=== PATIENT | male | born 1960 | race Caucasian/White ===

== ENCOUNTER 2019-06-03 11:54 | Emergency (ER) | payer OTHER ==
[~2019-06-03] VITALS: Ht 182.9 cm; Wt 86.2 kg
[2019-06-03 12:32] LABS: BASOPHILS ABSOLUTE AUTO 0.03 K/mm3 (0.00-0.23); BASOPHILS PERCENT AUTO 0 % (0-2); EOSINOPHILS PERCENT AUTO 1 % (0-6); Hematocrit 46.8 % (37.0-53.0); Hemoglobin 15.8 g/dL (13.5-17.5); IMMATURE GRAN ABSOLUTE AUTO 0.03 K/mm3 (0.00-0.10); IMMATURE GRAN PERCENT AUTO 0 % (0-1); LYMPHOCYTES ABSOLUTE AUTO 2.56 K/mm3 (0.84-5.20); LYMPHOCYTES PERCENT AUTO 23 % (21-46); MONOCYTES ABSOLUTE AUTO 1.24 K/mm3 (0.16-1.47); MONOCYTES PERCENT AUTO 11 % (4-13); Mean Corpuscular HGB 29.9 pg (26.0-34.0); Mean Corpuscular HGB Conc 33.8 g/dL (31.5-36.5); Mean Corpuscular Volume 89 fL (80-100); Mean Platelet Volume 10.7 fL (9.1-12.4); NEUTROPHILS ABSOLUTE AUTO 7.27 K/mm3 (1.96-9.15); NEUTROPHILS PERCENT AUTO 65 % (41-73); Platelet Count 168 K/mm3 (150-400); RDW Coefficient Variation 13.2 % (11.7-14.2); RDW Standard Deviation 43.2 fL (35.1-46.3); Red Blood Cell Count 5.28 M/mm3 (4.30-5.90); White Blood Cell Count 11.23 K/mm3 (4.00-11.30)
[2019-06-03 12:56] LABS: Alanine Aminotransfer (ALT/SGP 32 U/L (12-78); Albumin, Blood 4.1 g/dL (3.4-5.0); Alk Phos 92 U/L (50-136); Anion Gap 8 mmol/L (6-16); Aspartate Aminotrans (AST/SGOT 18 U/L (12-37); Blood Urea Nitrogen 10 mg/dL (8-24); Bun/Creatinine Ratio 11.7 (12.0-20.0); CO2, Blood 22 mmol/L (21-32); Calcium, Blood 8.8 mg/dL (8.5-10.1); Chloride, Blood 109 mmol/L (98-108); Creatinine, Blood 0.86 mg/dL (0.60-1.20); Glomerular Filtration Rate >60 (60-); Glucose, Blood 104 mg/dL (70-99); Sodium, Blood 139 mmol/L (136-145); Total Protein, Blood 8.1 g/dL (6.4-8.2); Troponin I <0.015 ng/mL (0.000-0.040)
[2019-06-03] MEDS ORDERED: Prednisone20 MG PO (14:53)
[2019-06-03] MEDS ORDERED: PERCOCET 10-321 EACH PO (14:53)
[2019-06-03] MEDS ORDERED: AZIT250 PO (14:53)
== END 2019-06-03 15:36 | disposition home or self-care (01) ==
LOC: ER 11:54
PROVIDERS: Physician Assistant
DX: J44.1 Chronic obstructive pulmonary disease with (acute) exacerbation (principal); F17.200 Nicotine dependence, unspecified, uncomplicated; Z88.5 Allergy status to narcotic agent
CPT/HCPCS: 71046; 80053; 84484; 85025; 93005; 93010; 94640; 96374; 96375; 99284-25; J1885; J2405; J3010

== ENCOUNTER 2023-12-13 03:23 | Emergency (ER) | payer OTHER ==
[~2023-12-13] VITALS: Ht 182.9 cm; Wt 86.2 kg
[~2023-12-13 03:23] MED LIST: AZIT250 PO; PERCOCET 10-321 EACH PO; Prednisone20 MG PO
[2023-12-13] MEDS ORDERED: Ipratropium/Albuterol SulF 2.5-0.5MG/3 ML Amp INH PRN (03:35)
[2023-12-13 03:50] LABS: BASOPHILS ABSOLUTE AUTO 0.02 K/mm3 (0.00-0.23); BASOPHILS PERCENT AUTO 0 % (0-2); EOSINOPHILS ABSOLUTE AUTO 0.01 K/mm3 (0.00-0.68); EOSINOPHILS PERCENT AUTO 0 % (0-6); Hematocrit 43.5 % (37.0-53.0); Hemoglobin 15.5 g/dL (13.5-17.5); Mean Corpuscular HGB 30.9 pg (26.0-34.0); Mean Corpuscular HGB Conc 35.6 g/dL (31.5-36.5); Mean Corpuscular Volume 87 fL (80-100); Mean Platelet Volume 11.5 fL (9.1-12.4); Platelet Count 146 K/mm3 (150-400); RDW Coefficient Variation 13.7 % (11.7-14.2); RDW Standard Deviation 43.7 fL (35.1-46.3); Red Blood Cell Count 5.02 M/mm3 (4.30-5.90); White Blood Cell Count 8.95 K/mm3 (4.00-11.30)
[2023-12-13 03:54] LABS: Base Excess Venous -7.1 mmol/L; Bicarbonate Venous 19.9 mmol/L (24.0-30.0); PCO2 Venous 26.7 mmHg (38-42); pH Blood Venous 7.42 (7.34-7.37)
[2023-12-13 03:56] LABS: IMMATURE GRAN ABSOLUTE AUTO 0.05 K/mm3 (0.00-0.10); IMMATURE GRAN PERCENT AUTO 1 % (0-1); LYMPHOCYTES ABSOLUTE AUTO 2.48 K/mm3 (0.84-5.20); LYMPHOCYTES PERCENT AUTO 28 % (21-46); MONOCYTES ABSOLUTE AUTO 1.17 K/mm3 (0.16-1.47); MONOCYTES PERCENT AUTO 13 % (4-13); NEUTROPHILS ABSOLUTE AUTO 5.22 K/mm3 (1.96-9.15); NEUTROPHILS PERCENT AUTO 58 % (41-73)
[2023-12-13 04:02] LABS: Albumin, Blood 2.9 g/dL (3.4-5.0); Albumin/Globulin Ratio 0.6 (0.8-1.8); Bilirubin, Total 2.4 mg/dL (0.1-1.0); Bun/Creatinine Ratio 16.6 (12.0-20.0); Calcium, Blood 9.2 mg/dL (8.5-10.1); Creatinine, Blood 0.9 mg/dL (0.60-1.20); Globulin, Blood 4.6 g/dL (2.2-4.0); Magnesium, Blood 2.3 mg/dL (1.6-2.4); Potassium, Blood 3.4 mmol/L (3.5-5.5); Total Protein, Blood 7.5 g/dL (6.4-8.2)
[2023-12-13] MEDS ORDERED: PredniSONE 20 MG Tab PO ONE (04:15)
[2023-12-13] MEDS ORDERED: Prednisone20 MG PO (04:39)
[2023-12-13 04:59] VITALS: BP 121/78
== END 2023-12-13 05:15 | disposition home or self-care (01) ==
LOC: ER 03:23
PROVIDERS: Emergency Medicine
DX: J44.1 Chronic obstructive pulmonary disease with (acute) exacerbation (principal); F17.200 Nicotine dependence, unspecified, uncomplicated; Z79.52 Long term (current) use of systemic steroids; Z79.2 Long term (current) use of antibiotics; Z88.5 Allergy status to narcotic agent
CPT/HCPCS: 71046; 80053; 82803; 83735; 83880; 84484; 85025; 93005; 93010; 94640; 94664; 99285-25; J7512

== ENCOUNTER 2023-12-18 08:34 | Inpatient (IN) | payer OTHER ==
[2023-12-18] VITALS (10 sets, daily range): BP systolic 142–189; BP diastolic 82–102
[~2023-12-18] VITALS: Ht 175.3 cm; Wt 84.1 kg
[2023-12-18 08:59] LABS: BASOPHILS ABSOLUTE AUTO 0.01 K/mm3 (0.00-0.23); BASOPHILS PERCENT AUTO 0 % (0-2); EOSINOPHILS ABSOLUTE AUTO 0.04 K/mm3 (0.00-0.68); EOSINOPHILS PERCENT AUTO 1 % (0-6); Hematocrit 39.5 % (37.0-53.0); IMMATURE GRAN ABSOLUTE AUTO 0.08 K/mm3 (0.00-0.10); IMMATURE GRAN PERCENT AUTO 1 % (0-1); LYMPHOCYTES ABSOLUTE AUTO 1.33 K/mm3 (0.84-5.20); LYMPHOCYTES PERCENT AUTO 15 % (21-46); MONOCYTES ABSOLUTE AUTO 1.05 K/mm3 (0.16-1.47); MONOCYTES PERCENT AUTO 12 % (4-13); Mean Corpuscular HGB 30.8 pg (26.0-34.0); Mean Corpuscular HGB Conc 35.4 g/dL (31.5-36.5); Mean Corpuscular Volume 87 fL (80-100); Mean Platelet Volume 10.8 fL (9.1-12.4); NEUTROPHILS ABSOLUTE AUTO 6.13 K/mm3 (1.96-9.15); NEUTROPHILS PERCENT AUTO 71 % (41-73); Platelet Count 220 K/mm3 (150-400); RDW Coefficient Variation 13.6 % (11.7-14.2); RDW Standard Deviation 43.1 fL (35.1-46.3); Red Blood Cell Count 4.55 M/mm3 (4.30-5.90); White Blood Cell Count 8.64 K/mm3 (4.00-11.30)
[2023-12-18 09:10] LABS: Albumin, Blood 2.6 g/dL (3.4-5.0); Albumin/Globulin Ratio 0.6 (0.8-1.8); Bilirubin, Total 1.1 mg/dL (0.1-1.0); Calcium, Blood 8.3 mg/dL (8.5-10.1); Creatinine, Blood 0.84 mg/dL (0.60-1.20); Globulin, Blood 4.2 g/dL (2.2-4.0); Potassium, Blood 3.8 mmol/L (3.5-5.5); Total Protein, Blood 6.8 g/dL (6.4-8.2)
[2023-12-18 09:12] LABS: International Normalized Ratio 1.06; Prothrombin Time Results 11.3 Sec (9.7-11.5)
[2023-12-18] MEDS ORDERED: Aspirin 325 MG Tab PO ONE (10:05)
[2023-12-18] MEDS ORDERED: Clopidogrel Bisulfate 75 MG Tab PO ONE (10:05)
[2023-12-18] MEDS ORDERED: Ondansetron HCl 2 MG / ML 2ML Vial IV PRN (12:30)
[2023-12-18] MEDS ORDERED: Dose Adjust by Pharmacy XX STA (12:40)
[2023-12-18] MEDS ORDERED: Lactated Ringer's 1,000 ML IV ONE (12:40)
[2023-12-18] MEDS ORDERED: Aspirin 300 MG Supp PR SCH (13:00)
[2023-12-18] MEDS ORDERED: Heparin Sodium,Porcine/0.5 NS 500 ML IV SCH (13:00)
[2023-12-18 14:33] LABS: SARS-Cov-2 (COVID-19) PCR, MMC NEGATIVE (NEGATIVE)
--- NOTE | 2023-12-18 18:31 | NUR ---
PT ARRIVED TO [facility] FROM ER AT APROX 1400 THIS AFTERNOON. SEE DOCUMENTED ADMISSION ASSESSMENT. PT IS AWAKE AND APPEARS TO BE ORIENTED X 3. FORGETFULNESS AND MILD CONFUSION. PT WANTS TO BE ABLE TO GET OOB TO URINATE, REMINDED PT THAT HE HAS LEFT SIDED PARALYSIS AND CANNOT SAFELY GET OOB AT THIS TIME, PT DOES NOT SEEM TO UNDERSTAND. SEVERE R SIDED GAZE, R TOUNGE DEVIATION. SLURRED SPEACH. NOT ABLE TO SWALLOW SAFELY PER REPORT FROM ER, ST ORDERED ON ADMIT. FAMILY AT BEDSIDE ARE CALM AND COOPERATIVE. ORIGIONAL PLAN WAS TO COBRA TRANSFER PT TO [facility] OR ANOTHER FACILITY CAPABLE OF THROMBECTOMY. PER DR LIMA, CONSULTATIONS WITH SEVERAL VASCULAR SURGEONS AT THESE FACILITIES, BEST PLAN OF ACTION IS TO KEEP PT ON HEPARIN FOR 48 HRS AND RE-ASSESS HIS CONDITION, THE SUREONS DID NOT FEEL A THROMBECTOMY OF THE NEAR OCCLUDED R.I.C WOULD BE BENEFICIAL FOR THE PT'S SYMPTOMS. FAMILY IN ROOM, UPDATED ON PLAN BY DR LIMA. PT REMAINS ON HEPARIN GTT PER PHARMACY. NO CHANGES IN NEUROLOCIAL STATUS NOTED SINCE ARRIVAL TO PCU. BED ALARM ON FOR SAFETY, CALL LIGHT IN REACH, BED IN LOWEST POSITION. WILL CONTINUE TO MONITOR AND GIVE REPORT TO NOC SHIFT RN.
[2023-12-18] MEDS ORDERED: Nicotine 14 MG PATCH TOP SCH (21:00)
--- NOTE | 2023-12-18 21:09 | NUR ---
PT IS ALERT AND ORIENTED X 3, COOPERATIVE WITH CARE. IT IS DIFFICULT TO UNDERSTAND PT. L SIDE FLACCID. PT FIDGETS A LOT AND PER DAY SHIFT HAS ATTEMPTED TO GET OUT OF BED. PT ON BED REST, BED ALARM ON FOR SAFETY. HE IS ON RA AND MAINTAINING 02 SATURATION ABOVE 92%. HE HAS A MOIST NON-PRODUCTIVE COUGH AND DENIES SOB. SUCTION SET UP IN ROOM AND READY FOR USE IF NEEDED. LUNG SOUNDS COARSE BILATERALLY. HR SR, BP ELEVATED, MD AWARE, PT HAD RECENT CVA. PT DENIES CHEST PAIN/PRESSURE. PT HAS CONDOM CATH ON FOR INCONTINENCE AND BRIEF THAT IS CHANGED PRN. PT DENIES PAIN. PT NPO HE FAILED SWALLOW EVAL IN ED PER DAY SHIFT REPORT. PT ON HEPARIN DRIP RUNNING PER EMAR. PT RESTING IN BED WITH LIGHTS DOWN AND MUSIC ON. Q2 TURNS. CALL LIGHT WITHIN REACH.
[2023-12-19 02:16] LABS: Hematocrit 39.7 % (37.0-53.0); Hemoglobin 13.6 g/dL (13.5-17.5); Mean Corpuscular HGB 30.6 pg (26.0-34.0); Mean Corpuscular HGB Conc 34.3 g/dL (31.5-36.5); Mean Corpuscular Volume 89 fL (80-100); Mean Platelet Volume 10.9 fL (9.1-12.4); Platelet Count 241 K/mm3 (150-400); RDW Standard Deviation 45.1 fL (35.1-46.3); Red Blood Cell Count 4.44 M/mm3 (4.30-5.90); White Blood Cell Count 8.17 K/mm3 (4.00-11.30)
[2023-12-19 02:38] LABS: Anion Gap 13 mmol/L (3-11); Blood Urea Nitrogen 20 mg/dL (8-24); CHOL/HDL RATIO 5.2; CO2, Blood 20 mmol/L (21-32); Calcium, Blood 8.2 mg/dL (8.5-10.1); Chloride, Blood 111 mmol/L (98-108); Cholesterol 150 mg/dL (50-200); Glomerular Filtration Rate 98 (60-); Glucose, Blood 103 mg/dL (70-99); HDL Cholesterol 29 mg/dL (>39); LDL/HDL RATIO 3.4; Low Density Lipoprotein Chol 98 mg/dL (0-110); Sodium, Blood 140 mmol/L (136-145); Triglycerides 117 mg/dL (30-160); Very Low Density Lipoprot Chol 23 mg/dL (6-32)
[2023-12-19] MEDS ORDERED: Dose Adjust by Pharmacy XX STA ×2 (02:44→10:04)
[2023-12-19 03:00] VITALS: BP 145/81
--- NOTE | 2023-12-19 05:08 | NUR ---
Q4 NEURO CHECKS AND MOUTH CARE PERFORMED. PT CONTINUES TO BE DIFFICULT TO UNDERSTAND. PT CONTINUES TO BE FLACCID ON LEFT SIDE OF HIS BODY WITH LEFT FACIAL DROOPING. NO CHANGES SINCE BEGINNING OF SHIFT REGARDING HIS NEURO STATUS. HE CONTINUES TO FIDGET IN BED. BED ALARM ON FOR SAFETY. HE CONTINUES TO BE ON RA MAINTAINING O2 SATURATION ABOVE 92%, HE DENIES SOB. HR CONTINUES TO BE SR AND HE DENIES CHEST PAIN/PRESSURE. CONDOM CATHETER ON AND DRAINING URINE WITH GRAVITY. PT RESTING IN BED AND CALL LIGHT WITHIN REACH.
[2023-12-19 07:00] VITALS: BP 153/70
[2023-12-19] MEDS ORDERED: Clopidogrel Bisulfate 75 MG Tab PO SCH (09:00)
[2023-12-19] MEDS ORDERED: LORazepam 2 MG/ML 1ML Injection IV ONE (12:05)
[2023-12-19 13:08] VITALS: BP 147/83
[2023-12-19 17:07] VITALS: BP 143/76
[2023-12-19 19:26] VITALS: BP 159/92
[2023-12-19] MEDS ORDERED: Albuterol 2.5 MG/3 ML VIAL INH PRN (21:25)
[2023-12-20] VITALS (7 sets, daily range): BP systolic 142–166; BP diastolic 87–103
--- NOTE | 2023-12-20 01:04 | NUR ---
PT IS ALERT AND FOLLOWS COMMANDS. HE IS HARD TO UNDERSTAND WHEN HE SPEAKS. LEFT SIDE FLACCID & L SIDE FACIAL DROOP. PT IS ON RA AND MAINTAINING 02 SATURATION ABOVE 90%. UPPER AIRWAY MOIST AND WEAK COUGH. RESPIRATORY EVALUATED AND SUCTIONED PT. PT DENIES SOB. PT'S HR SR, BP STABLE, AND PT DENIES CHEST PAIN/PRESSURE. PT IS INCONTINENT, WEARING BRIEF AND TEEPEE, CHANGED PRN. THIS RN WENT WITH PT DOWN TO CT PER ORDERS, AND DURING CT WHEN CONTRAST WAS BEING ADMINISTERED THE IV INFILTRATED. NOTIFIED, AND PT'S L ARM WHER INFILTRATION OCCURED ELEVATED, AND ROTATING ICE AND HEAT Q 30 MINUTES. PT DENIES PAIN. Q2 TURNS. HE IS RESTING IN BED AND CALL LIGHT WITHIN REACH.
[2023-12-20 04:24] LABS: Hematocrit 46.9 % (37.0-53.0); Mean Corpuscular HGB 30.9 pg (26.0-34.0); Mean Corpuscular HGB Conc 34.1 g/dL (31.5-36.5); Mean Corpuscular Volume 91 fL (80-100); Mean Platelet Volume 10.9 fL (9.1-12.4); Platelet Count 262 K/mm3 (150-400); RDW Standard Deviation 46.9 fL (35.1-46.3); Red Blood Cell Count 5.17 M/mm3 (4.30-5.90); White Blood Cell Count 9.92 K/mm3 (4.00-11.30)
[2023-12-20 04:39] LABS: Bun/Creatinine Ratio 28.6 (12.0-20.0); Calcium, Blood 8.8 mg/dL (8.5-10.1); Creatinine, Blood 0.8 mg/dL (0.60-1.20); Potassium, Blood 4.2 mmol/L (3.5-5.5)
--- NOTE | 2023-12-20 04:57 | NUR ---
REGARDING INFILTRATION OF IV CONTRAST, PHARMACY RECOMMENDED COLD PACKS AND MICA SPLITTER RECOMMENDED HEAT, BOTH RECOMMENDED ELEVATION. COLD AND HEAT ROTATED EVERY 20-30 MINUTES. AREA RED AND BLANCHABLE. AREA OUTLINED WITH SKIN MARKER AND MEASURED. PHOTO IN CHART. IV REMOVED AFTER INFILTRATION OCCURED. WITH THIS MORNINGS LABS KIDNEY FUNCTION UNCHANGED FROM PREVIOUS LABS. PT REMAINS ON RA AND MAINTAINING 02 SATURATION ABOVE 92%, HE DENIES SOB. HR SR, BP STABLE, AND PT CONTINUES TO DENY CHEST PAIN/PRESSURE. ATTENDS AND TEEPEE CHANGED PRN. Q 2 TURNS. L SIDE REMAINS FLACCID. PT RESTING IN BED AND CALL LIGHT WITHIN REACH.
--- NOTE | 2023-12-20 05:13 | NUR ---
Q4 NEURO CHECKS PERFORMED. NEUROLOGICAL STATUS UNCHANGED ALL SHIFT.
--- NOTE | 2023-12-20 05:42 | NUR ---
RT IN SUCTIONING PT AGAIN. PT TOLERATING WELL.
--- NOTE | 2023-12-20 06:02 | NUR ---
CTPE Study infiltrated according to converting technician approximately 100mL of iodinated contrast infiltrated into surrounding tissue. Redness noted to site with swelling. Called physician and pharmacy for recommendations on reducing swelling and treatment. Cold compress and warm compress per pharmacy and per radiology applied and alternated every 20-30 minutes with appropriate skin barriers. Affected limb elevated per suggestions from physician as well. Compresses stopped around 0200. With auditor in charge Mike, measurements made and wound outlined and measurement garcía placed on skin and pictures in chart. At 0500 blisters noted. Physician renotified. Physician to room at 0550 and states to continue to monitor for any changes/necrosis. pt reports no pain.
[2023-12-20] MEDS ORDERED: Magnesium Hydroxide Conc 10 ML UDC PT PRN (14:15)
[2023-12-20] MEDS ORDERED: Docusate Sodium 100 MG UDC PT PRN (14:15)
[2023-12-20] MEDS ORDERED: Bisacodyl 10 MG Supp PR PRN (14:15)
--- NOTE | 2023-12-20 14:17 | NUR ---
GOALS OF CARE VISIT WITH PATIENT PT IS A/O. HE IS ABLE TO VERBALLY CONTRIBUTE TO CONVERSATION. SONIA CONFIRMED VERBALLY, HE DOES WANT A FEEDING TUBE. "I'M A HUNGRY HUNGRY HIPPO". RISK VS BENEFIT RE: CPR EXPLAINED TO PT. SONIA STATED, "CHEST COMPRESS" WITH ADDITIONAL CLARIFICATION BY THIS PC RN, HE WISHES TO REMAIN A FULL CODE. SONIA STATED HIS SISTER, MERCY MCKENNA IS HIS DECESION MAKER IF/WHEN HE IS NOT ABLE TO MAKE DECESIONS FOR HIMSELF. MERCY'S PHONE NUMBER IS [phone] OR [phone] BROTHERCROW IN THE ROOM MID VISIT. PC TO REMAIN AVAILABLE NEEDED. UPDATE PROVIDED TO PRIMARY AND [employer]I [employer].
--- NOTE | 2023-12-20 18:31 | NUR ---
SHIFT SUMMARY PT WAKES TO VERBAIL STIMULI, ORIENTED X3-4; LEFT FACIAL DROOP NOTED, LEFT UPPER AND LOWER EXTREMITIES FLACCID, SPEECH IN MUMBLED/SLURRED. MOVES RIGHT EXTREMITIES, STRONG RUSSIAN LANGUAGE INSTRUCTOR WITH RIGHT SIDE. RIGHT GAZE NOTED, UNABLE TO LOOK PAST MIDLINE TO LEFT SIDE. PT DENIES PAIN, CHEST PAIN/PRESSURE, SOB, NAUSEA, DIZZINESS AND NUMB/TINGLING. TELE SINUS 70-80'S, BP STABLE. SPO2 >90% ON RA, BREATHING TACHYPNIC AT TIMES, BREAHTING MOIST. ABD SOFT, NONTENDER, +BT T/O. PT NPO, UNABLE TO SWALLOW WITH SPEECH THERAPY, CONTINUE WITH STRICT NPO, PT INITIALLY STATED TO ST, HE DID NOT WANT A FEEDING TUBE, DISCUSSED WITH FAMILY AND MD, ORDERS FOR NG FEEDING TUBE PLACED; PLACED DOBHOFF THIS AM, PULLED THIS EVENING AND REPLACED, AWAITING XRAY VERIFICATION OF PLACEMENT. LEFT UPPER ARM IV INFILTRATION THIS AM MEASURED 37/30.5/28 AND FIRMS TO PALPITATION, BLISTER JUST STARTED FORMING; THIS EVENING 32/31/30 WITH LARGE BLISTERS NOTED TO 2/3 MEASUREMENT; WHOLE ARM IS SOFT TO PALPITATION. PT WORKED WITH PHYSICAL THERAPY TODAY. OTHER VSS. NO OTHER ACUTE CHANGES NOTED. WILL CONTINUE TO MONITOR.
--- NOTE | 2023-12-20 19:46 | NUR ---
PT ALERT AND HAS GARBLED SPEECH, HARD TO UNDERSTAND PATIENT. HE WILL ANSWER YES OR NO QUESTIONS. HE REPEATS THINGS AT TIMES. L FACIAL DROOPING, L ARM & LEG FLACCID. L SIDE NEGLECT NOTED. R SIDE GAZE NOTED. PT ON RA AND MAINTAINING 02 SATURATION ABOVE 92%, UPPER AIRWAY WET AT TIMES, SUCTION PRN. PT DENIES SOB. PT'S HR SR 80'S-90'S, PT DENIES CHEST PAIN/PRESSURE. NG TUBE PLACED ON DAY SHIFT FOR TUBE FEEDINGS. AWAITING XRAY RESULTS FOR PLACEMENT TO START TUBE FEEDINGS. PT IS INCONTINENT AND BRIEF AND TEEPEE IN PLACE AND CHANGED PRN. BILATERAL SEQUENTIAL DEVICES IN PLACE. Q 2 TURNS. PT RESTING IN BED WITH MUSIC PLAYING. CALL LIGHT WITHIN REACH.
--- NOTE | 2023-12-20 20:34 | NUR ---
REVIEWED RADIOLOGY REPORT FOR KHARI ADRIENNE PLACEMENT. RESUMING TUBE FEEDINGS NOW PER .
[2023-12-20] MEDS ORDERED: Scopolamine Hydrobromide Patch TOP SCH (23:35)
[2023-12-21] MEDS ORDERED: Atropine Sulfate 1% Opth Soln 2ML BTL SL PRN (00:20)
--- NOTE | 2023-12-21 00:37 | NUR ---
PT'S UPPER AIRWAY SOUNDS MORE WET TONIGHT THAN IT DID LAST NIGHT. PT STILL HAS VERY WEAK COUGH EFFORT. LUNGS SOUND CONGESTED AND AUDIBLE WHEEZE. MD CONSULTED. SCOPOLAMINE PATCH AND ATROPINE DROPS ORDERED. RT ADMINISTERED BREATHING TREATMENT AROUND 2029 AND SUCTIONED PT. JUST NOTIFIED RT AGAIN AND SHE SAID SHE WILL BE BY SHORTLY WITH ANOTHER BREATHING TREATMENT AND SUCTION HIM AGAIN.
[2023-12-21 04:52] VITALS: BP 105/82
--- NOTE | 2023-12-21 05:24 | NUR ---
PT REMAINS HARD TO UNDERSTAND WITH GARBLED SPEECH, HE ANSWERS YES OR NO QUESTIONS WELL. NEURO CHECKS PERFORMED Q4, NO CHANGE IN NEURO STATUS THIS SHIFT, SEE PREVIOUS NOTE. PT REMAINS ON RA MAINTAINING 02 SATURATION ABOVE 92%. PT SOB AT TIMES, RT ADMINISTERED TWO BREATHING TREATMENTS THIS SHIFT AND SUCTIONING. SCOLPAMINE PATCH AND ATROPINE SL DROPS ORDERED FOR PT AND HIS SECRETIONS HAVE DECREASED AND LUNGS SOUND LESS CONGESTED. TF & FLUSHES RAN PER ORDERS. BRIEF AND TEEPEE CHANGED PRN AND Q2 TURNS. PT RESTING IN BED WITH EVEN AND UNLABORED BREATHING. CALL LIGHT WITHIN REACH.
[2023-12-21 05:43] LABS: Bun/Creatinine Ratio 33.8 (12.0-20.0); Calcium, Blood 8.7 mg/dL (8.5-10.1); Creatinine, Blood 0.89 mg/dL (0.60-1.20); Phosphorus, Blood 3.3 mg/dL (2.5-4.9); Potassium, Blood 3.9 mmol/L (3.5-5.5)
[2023-12-21 08:07] VITALS: BP 156/88
[2023-12-21 12:44] VITALS: BP 144/98
[2023-12-21 16:02] VITALS: BP 154/99
--- NOTE | 2023-12-21 18:49 | NUR ---
END OF SHIFT PT SLEEPING INTERMITTENTLY T/O SHIFT. PT WAKES TO VERBAL STIMULI. PT SPEECH MUMBLED & DIFFICULT TO UNDERSTAND. PT ABLE TO ANSWER Y/N QUESTIONS BY NODDING OR SHAKING HIS HEAD. PT ORIENTED TO SELF & PLACE. PT W/ L FACIAL DROOP & LUE & LLE FLACCID. PT ABLE TO FOLLOW SOME SIMPLE COMMANDS. PT VSS. MONITOR SHOWING SR-ST, HR 70s-120s. SPO2 > 90% ON RA. PT W/ EPISODE THIS AFTERNOON OF WHEEZING & SLIGHT GURGLING. RT TO RM FOR BREATHING TX & PRN SL ATROPINE DROPS APPLIED PER EMAR W/ IMPROVEMENT. PT NPO. DOBHOFF IN PLACE FOR INTERMITTENT TF & WATER FLUSHES. PT W/ URINARY RETENTION, FONG CATH INSERTED THIS SHIFT. FONG CATH PATENT & DRAINING TEA COLORED URINE. PT REQUIRING Q2H 2 PERSON MAX ASSIST REPOSITIONING.
[2023-12-21 20:17] VITALS: BP 151/104
[2023-12-21] MEDS ORDERED: Insulin Glargine-Yfgn 100 Unit/mL 3 ML SYR SC SCH (21:00)
--- NOTE | 2023-12-21 22:06 | NUR ---
PT SLEEPING AND HARDER TO AROUSE THAN LAST NIGHT. HE WILL OPEN HIS EYES TO SOUND AND LOOK TO THE RIGHT FOR A FEW SECONDS BEFORE HE FALLS BACK TO SLEEP. R GAZE STILL PRESENT, L SIDE STILL FLACCID. PT DENIES ANY PAIN. UPPER AIRWAY WET AGAIN TONIGHT. SCOPOLAMINE PATCH STILL APPLIED, AND ATROPINE SL DROPS ADMINISTERED. HR SR 70'S-120'S, BP STABLE. FONG CATHETER WAS PLACED ON DAY SHIFT FOR ACUTE RETENTION. FONG DRAINING TEA COLORED URINE WITH GRAVITY. PT STILL HAS NG TUBE FOR FEEDINGS. ORAL CARE Q4 HOURS & Q2 TURNS PER ORDERS. PT RESTING IN BED AND CALL LIGHT WITHIN REACH.
[2023-12-21 23:08] VITALS: BP 147/107
[2023-12-22] MEDS ORDERED: Insulin Human Lispro 100 Units/ML 3ML Syringe SC SCH
[2023-12-22 04:43] VITALS: BP 156/102
[2023-12-22 05:24] LABS: Hematocrit 44.8 % (37.0-53.0); Hemoglobin 15.2 g/dL (13.5-17.5); Mean Corpuscular HGB 30.6 pg (26.0-34.0); Mean Corpuscular HGB Conc 33.9 g/dL (31.5-36.5); Mean Corpuscular Volume 90 fL (80-100); Mean Platelet Volume 10.9 fL (9.1-12.4); Platelet Count 262 K/mm3 (150-400); RDW Coefficient Variation 14.3 % (11.7-14.2); RDW Standard Deviation 47.2 fL (35.1-46.3); Red Blood Cell Count 4.97 M/mm3 (4.30-5.90); White Blood Cell Count 14.55 K/mm3 (4.00-11.30)
[2023-12-22 05:56] LABS: Magnesium, Blood 2.7 mg/dL (1.6-2.4)
[2023-12-22 05:57] LABS: Calcium, Blood 9.2 mg/dL (8.5-10.1); Creatinine, Blood 0.94 mg/dL (0.60-1.20); Phosphorus, Blood 4.1 mg/dL (2.5-4.9); Potassium, Blood 3.9 mmol/L (3.5-5.5)
--- NOTE | 2023-12-22 06:09 | NUR ---
NO ACUTE CHANGES THIS SHIFT. PT CONTINUES TO BE HARDER TO AROUSE THAN LAST NIGHT. WHEN HE DOES OPEN HIS EYES GAZE RIGHT. L SIDE FLACCID. PT NOT OPENING HIS MOUTH EASILY FOR ATROPIN DROPS AND MOUTH CARE HE WAS LAST NIGHT. HR ST 100'S-120'S. PT CONTINUES TO BE ON ROOM AIR AND MAINTAINING 02 SATURATION AROUND 90-92%. PT DENIES PAIN. Q2 TURNS, Q4 NEURO CHECKS, Q4 ORAL CARE. FONG CATHETER CONTINUES TO DRAIN URINE WITH GRAVITY. PT RESTING IN BED LISTENING TO MUSIC. CALL LIGHT WITHIN REACH.
--- NOTE | 2023-12-22 06:31 | NUR ---
PT'S OXYGEN DROPPED TO 89% ON RA, 3L NC APPLIED. PT'S OXYEN SATURATION NOW ABOVE 92%.
[2023-12-22 07:45] VITALS: BP 140/84
[2023-12-22] MEDS ORDERED: Piperacillin/Tazobactam Sod 3.375 GM in NS 100 ML IV SCH (09:00)
[2023-12-22 11:14] VITALS: BP 140/95
--- NOTE | 2023-12-22 14:47 | NUR ---
Family (pt's life partner, and his daughter) here and given a brief update. Dr. Ross came and explained the results of the CT this morning, and plan of care, possibility of a poor prognosis and decisions needing to be made if pt's condition continues to deteriorate over the next few days. They were given supportive care as a family, and made forest worker and palliative care resources also availalbe to them.
[2023-12-22 16:20] VITALS: BP 144/91
[2023-12-22] MEDS ORDERED: Furosemide 10 MG/ML 4ML Vial ONE (17:04)
[2023-12-22] MEDS ORDERED: Furosemide 10 MG/ML 4ML Vial IV ONE (17:05)
[2023-12-22] MEDS ORDERED: ROPINIROLE HCL3 M1 PO (17:30)
[2023-12-22] MEDS ORDERED: QUETIAPINE FUM400 M6 PO (17:30)
[2023-12-22] MEDS ORDERED: FAMO20 PO (17:31)
[2023-12-22] MEDS ORDERED: PHARBEDRYL PO (17:31)
[2023-12-22] MEDS ORDERED: ALBU8HFA2 INH (17:32)
[2023-12-22] MEDS ORDERED: ALBU2.5V5 INH (17:32)
[2023-12-22] MEDS ORDERED: STIOLTO RESPIMAT4 G2 INH (17:33)
[2023-12-22] MEDS ORDERED: TRAZ150T57 PO (17:33)
[2023-12-22] MEDS ORDERED: FISH OIL 1,0001 EA10 PO (17:34)
[2023-12-22] MEDS ORDERED: Vitamin D1000 UNI1 PO (17:37)
[2023-12-22] MEDS ORDERED: DOXY100 PO (17:39)
[2023-12-22] MEDS ORDERED: DIPH25 PO (17:40)
[2023-12-22] MEDS ORDERED: GUAI600T33 PO (17:41)
[2023-12-22] MEDS ORDERED: ROPI1 PO (17:42)
[2023-12-22] MEDS ORDERED: CATAPRES0.2 M1 PO (17:43)
[2023-12-22] MEDS ORDERED: DELTASONE20 MG PO (17:46)
--- NOTE | 2023-12-22 18:08 | NUR ---
Call to Dr. Ross at 1700 due to concerns with pt's increased work of breathing, increasing tachypnea, increased tachycardia. Order for 40 mg IV lasix received and administered. Now at 1800 the RR remains 40 / minute, but 325 cc urine output, and lung sounds are still coarse but slightly better than 1 hour ago. Call to RT to talk about Bipap.
--- NOTE | 2023-12-22 18:37 | NUR ---
Throughout the day, pt has been lethargic and minimally responsive. His lung sounds have been coarse, tachypneic, and he has also had tachycardia. The RR increased over the day, from 36 RR to 40/min and with increasing accessory muscle use. HR increased from 115 this am to 130 bpm this evening, still sinus rhythm. He was given IV lasix at 5 pm with some improvement in his lung sounds, but no decrease in his work of breathing. New order received for bipap, communicated with RT Sulaiman Bazan, who will come to PCU to get that started for the pt after he takes care of a trauma arrival in the ED. Family is at the bedside and were updated on the plan of care. Also had a conversation this evening with the daughter and of the pt concerning code status, even if he is not on comfort care. Family requesting that the palliative care come to talk with them in the morning about making these decisions. Message sent to palliative care voice mail.
[2023-12-22 19:29] VITALS: BP 121/84
--- NOTE | 2023-12-22 19:41 | NUR ---
ASSUMPTION OF CARE: THIS RN TO ASSUME CARE AT APPROX 1900. REPORT GIVEN AT BEDSIDE WITH FAMILY PRESENT. NEURO: PT LETHARGIC, UNABLE TO RESPOND TO VERBAL STIMULI. HE RESPONDS TO PAIN AND MOVES HIS RIGHT UPPER EXTREMITY SPONTANIOUSLY. CARDIAC: PT ON TELE IN SINUS TACH 130S. BLOOD PRESSURE STABLE. PULSES PRESENT ALL FOUR EXTRIMITIES RESP: CONTINUOUS SPO2 MONITORING. SATS >90% ON 2L NC. LUNG SOUNDS COARSE, RR >40. RT NOTIFIED, PLAN TO PLACE ON BIPAP. GI/GI: PT HAS FONG DRAINING CLEAR YELLOW URINE TO GRAVITY. DOBHOFF IN NARES AT 60CM, FLUSHED PER ORDERS. MSK: PT UNABLE TO FOLLOW COMMANDS, RIGHT UPPER EXTRIMITY MOVES SPONTANIOUSLY. SKIN: MEPILEX IN PLACE ON COCCYX, RED BLISTERS ON LEFT FORARM. SCDS IN PLACE. WILL CONTINUE TO MONITOR AND PROVIDE CARE
[2023-12-22] MEDS ORDERED: Acetaminophen 160MG / 5ML 10.15 UDC PT PRN ×2 (22:00→23:10)
[2023-12-22] MEDS ORDERED: Acetaminophen 160MG / 5ML 10.15 UDC PT ONE (22:00)
[2023-12-22] MEDS ORDERED: Morphine Sulfate 20 MG/1ML 1 ML Oral Syringe PO PRN (22:25)
--- NOTE | 2023-12-22 22:26 | NUR ---
THIS RN CALLED MD ABOUT ELEVATED TEMPERATURE AND INCREASED WORK OF BREATHING. MD TO BEDSIDE, ORDERS RECEIVED FOR ROXANOL, TYLENOL, AND A VBG. SEE EMAR FOR ADMINISTRATION DETAILS
[2023-12-22] MEDS ORDERED: Azithromycin 500 MG in NS 250 ML IV SCH (23:00)
[2023-12-22 23:10] LABS: Base Excess Venous 10.1 mmol/L; Bicarbonate Venous 32.9 mmol/L (24.0-30.0); PCO2 Venous 39.7 mmHg (38-42); pH Blood Venous 7.53 (7.34-7.37)
[2023-12-22 23:11] VITALS: BP 126/83
[2023-12-22 23:47] LABS: Albumin, Blood 2.8 g/dL (3.4-5.0); Albumin/Globulin Ratio 0.6 (0.8-1.8); Bilirubin, Total 0.9 mg/dL (0.1-1.0); Bun/Creatinine Ratio 27.5 (12.0-20.0); Calcium, Blood 9.1 mg/dL (8.5-10.1); Creatinine, Blood 1.2 mg/dL (0.60-1.20); Globulin, Blood 4.5 g/dL (2.2-4.0); Potassium, Blood 3.8 mmol/L (3.5-5.5); Total Protein, Blood 7.3 g/dL (6.4-8.2)
[2023-12-23] MEDS ORDERED: Piperacillin/Tazobactam Sod 4.5 GM in NS 100 ML IV SCH
[2023-12-23 00:56] LABS: Source, Urine Foley catheter
[2023-12-23 01:00] LABS: Appearance, Urine Hazy (Clear); Bilirubin, Urine Neg (Neg); Blood, Urine 5+ (Neg); Color, Urine Yellow (P-Yellow); Glucose Qualitative, Urine Neg (Neg); Ketones, Urine Neg (Neg); Leukocyte Esterase, Urine 1+ (Neg); Nitrite, Urine Neg (Neg); Protein, Urine 2+ (Neg); Urobilinogen, Urine 1+ (Normal)
--- NOTE | 2023-12-23 01:32 | NUR ---
THIS RN TOOK OVER FOR PRIMARY RN TIARA GOLDSMITH FOR MEAL BREAK. NOTED PT RUBBING NOSE WITH R ARM, PICKING AT DOBHOFF, ATTEMPTING TO REMOVE HI FLOW NC. PT UNABLE TO FOLLOW COMMANDS. R MITT INTIATED, PT UNABLE TO MOVE L BASELINE. NOTIFIED DR. TRACIE ROBB OF INTIATION OF RESTRAINT AND ORDERS RECEIVED.
[2023-12-23 01:34] LABS: Bacteria Mod /hpf; Squamous Epithelial Cells Rare /hpf (Few); Uric Acid Crystals Few /hpf
[2023-12-23] MEDS ORDERED: AcetaZOLAMIDE Sodium 500 MG Vial IV ONE (03:00)
[2023-12-23 04:58] LABS: Hematocrit 43.8 % (37.0-53.0); Hemoglobin 14.4 g/dL (13.5-17.5); Mean Corpuscular HGB 29.9 pg (26.0-34.0); Mean Corpuscular HGB Conc 32.9 g/dL (31.5-36.5); Mean Corpuscular Volume 91 fL (80-100); Mean Platelet Volume 11.8 fL (9.1-12.4); Platelet Count 212 K/mm3 (150-400); RDW Coefficient Variation 14.2 % (11.7-14.2); RDW Standard Deviation 48.2 fL (35.1-46.3); Red Blood Cell Count 4.81 M/mm3 (4.30-5.90); White Blood Cell Count 16.43 K/mm3 (4.00-11.30)
[2023-12-23 05:33] LABS: Bun/Creatinine Ratio 26.3 (12.0-20.0); Calcium, Blood 9.2 mg/dL (8.5-10.1); Creatinine, Blood 1.14 mg/dL (0.60-1.20); Magnesium, Blood 2.8 mg/dL (1.6-2.4); Phosphorus, Blood 5.9 mg/dL (2.5-4.9); Potassium, Blood 3.6 mmol/L (3.5-5.5)
[2023-12-23 06:00] LABS: PCO2 Arterial 36.1 mmHg (35-45); PO2 Arterial 87.5 mmHg (80-100); pH Blood Arterial 7.45 (7.35-7.45)
--- NOTE | 2023-12-23 06:11 | NUR ---
SHIFT NOTE: PT ABLE TO RESPOND VERBALLY BY THE END OF THIS SHIFT. WORDS ARE INCOHERENT. HE FOLLOW SIMPLE COMMANDS. HE HAS MOBILITY OF HIS RIGHT EXTRIMITIES, LEFT SIDE FLACCID. HE IS ON TELE IN SINUS TACH. BP STABLE. HE HAS BEEN ON AIRVO WITH SPO2>90%. HIS LUNG SOUNDS ARE COARSE AND HIS RR IS ELEVATED. HE HAS TOLERATED MEDICATIONS AND A FLUSH THROUGH HIS DOBHOFF WELL. HE HAS A FONG THAT IS PATENT AND DRAINING TO GRAVITY. TALKED TO FAMILY ABOUT INTUBATION FOR WORK OF BREATHING. FAMILY DECLINED INTUBATION DUE TO PROGNOSIS. PLAN TO DISCUSS CODE STATUS IN AM.
[2023-12-23] MEDS ORDERED: Dextrose 5% 1,000 ML IV SCH (08:00)
[2023-12-23 08:27] VITALS: BP 126/82
[2023-12-23] MEDS ORDERED: Magnesium Hydroxide Conc 10 ML UDC PO PRN (08:40)
--- NOTE | 2023-12-23 10:29 | NUR ---
Family present: patient's brother Jose, older sister Raisa, pt's SO Rehana, and Rehana's daughter Chucky. Call to palliative care RN Monae to notify her that the family is here. She said that she and Dr. Ross will be here to see the pt around 11 am.
--- NOTE | 2023-12-23 11:12 | NUR ---
Per Dr. Ross, pt to remain a full code for now as pt is participating in the code status conversation, and stating he wants to be full code. Undetermined ability on part of patient to comprehend, per Dr. Ross. Palliative care is following.
[2023-12-23 12:11] VITALS: BP 158/90
--- NOTE | 2023-12-23 13:47 | NUR ---
Pt is responding with slurred speech to questions and he is attempting to follow simple directions. Oral care with damp sponge and mouth moisturizer.
[2023-12-23 15:48] VITALS: BP 132/95
[2023-12-23 19:27] VITALS: BP 125/86
[2023-12-23 23:09] VITALS: BP 127/88
[2023-12-24] VITALS (27 sets, daily range): BP systolic 73–140; BP diastolic 12–112
--- NOTE | 2023-12-24 05:00 | NUR ---
SHIFT SUMMARY PT RESPONDS TO VERBAL STIMULI, EYES OPEN SPONTANEOUSLY. HE IS ABLE TO FOLLOW SOME COMMANDS, AND ABLE TO RESPOND TO QUESTIONS WITH VERY SLURRED/ MUMBLED SPEECH. VSS, AFEBRILE, SPO2 >90% ON AIRVO 60L 26% FIO2. TELE SHOWS SINUS TACH. RESPIRATIONS 30'S-40'S. PT WITH SIGNIFICANT LEFT SIDE DEFICIT WELL WEAKNESS ON THE RIGHT. FONG IS PATENT AND DRAINING TO GRAVITY. ORAL CARE PERFORMED THIS SHIFT. PT REPOSITIONED FREQUENTLY. STILL NO BM THIS SHIFT, DULCOLAX SUPPOSITORY ADMINISTERED PER EMAR. HE IS RESTING QUIETLY, BED IN LOWEST POSITION, BREATHING EVEN AND UNLABORED
--- NOTE | 2023-12-24 07:50 | NUR ---
MET WITH PETER AND FAMILY TO DISCUSS GOALS OF CARE. DR. LIMA AT BEDSIDE AND DISCUSSED TREATMENT OPTIONS AND PLAN OF CARE. HE UPDATED FAMILY ON BETANCOURT CONDITION AND DISCUSSED TREATMENT VS COMFORT CARE IF BETANCOURT CONDITION DECLINES. WE DISCUSSED CODE STATUS WITH FAMILY AT THIS TIME THEY WOULD LIKE TO LEAVE HIM FULL CODE. PROVIDER EXPLAINED LOW PROBABLILITY OF SURVIVAL IF SONIA WERE TO CODE. PROVIDED COPY OF "HARD CHOICES FOR LOVING PEOPLE". PC WILL REMAIN AVALIABLE
[2023-12-24 08:56] LABS: Base Excess Venous -2.1 mmol/L; Bicarbonate Venous 24.3 mmol/L (24.0-30.0); PCO2 Venous 23.4 mmHg (38-42); pH Blood Venous 7.55 (7.34-7.37)
--- NOTE | 2023-12-24 08:59 | NUR ---
PT is lethargic, barely responsive. Brother Jose at the bedside. RR 47-50, heart rate 133-140 bpm. Blood pressure is stable. Call to Dr Ross after his rounding with critical ph of 7.55 on the VBG. No new orders received yet. D5 was stopped, 40 IV lasix given as ordered. Zosyn is infusing via NILAY midline IV.
[2023-12-24] MEDS ORDERED: Furosemide 10 MG/ML 4ML Vial IV SCH (09:00)
[2023-12-24 09:10] LABS: Hematocrit 42.8 % (37.0-53.0); Mean Corpuscular HGB 30.7 pg (26.0-34.0); Mean Corpuscular Volume 88 fL (80-100); Mean Platelet Volume 12.8 fL (9.1-12.4); Platelet Count 195 K/mm3 (150-400); RDW Standard Deviation 45.1 fL (35.1-46.3); Red Blood Cell Count 4.89 M/mm3 (4.30-5.90); White Blood Cell Count 24.72 K/mm3 (4.00-11.30)
[2023-12-24 09:14] LABS: Bun/Creatinine Ratio 32.5 (12.0-20.0); Creatinine, Blood 1.23 mg/dL (0.60-1.20); Potassium, Blood 4.2 mmol/L (3.5-5.5)
[2023-12-24] MEDS ORDERED: CefTRIAXone Sodium 1,000 MG in NS 100 ML IV SCH (09:26)
[2023-12-24] MEDS ORDERED: MetroNIDAZOLE 500MG/NS 100 ml 100 ML IV SCH (10:00)
--- NOTE | 2023-12-24 10:09 | NUR ---
down for CT scan, Jessica WALDEN accompanying. All family at bedside. Dr. Ross here
--- NOTE | 2023-12-24 11:13 | NUR ---
Holding tube feeding this morning due to his respiratory status.
[2023-12-24] MEDS ORDERED: Sodium Chloride 3% 500 ML IV SCH ×2 (12:05)
--- NOTE | 2023-12-24 12:26 | NUR ---
ASSUMPTION OF CARE PT BROUGHT TO ICU 7 AT THIS TIME AND TRANSFERRED TO ICU BED WITH MECHANICAL CEILING LIFT. PT HAS EYES OPEN, RESPONSIVE TO PAINFUL STIMULI. NOT TRACKING MOVEMENTS OR FOLLOWING ANY COMMANDS. LUNGS ARE DIMINISHED THROUGHOUT. RR MAINTAINING IN 40S. PT BROUGHT ON RA WITH SPO2 91%. PT PLACED ON AIRVO WITH PREVIOUS SETTINGS 60L/25%. RT AT BEDSIDE AND TITRATED TO 45L/71%. SINUS TACH ON MONITOR WITH RATE IN 110S-120S. BP STABLE WITH MAP >65. DOBHOFF IN PLACE AT 60CM. BOWEL TONES HYPOACTIVE. FONG PATENT AND DRAINING TO GRAVITY. BED IN LOW POSITION, CALL LIGHT WITHIN REACH. FAMILY AT BEDSIDE AND UPDATED. HEPARIN GTT STARTED AT 12UNITS/KG/HR AND 3% SALINE STARTED AT 30ML/HR.
[2023-12-24 12:28] LABS: Anti-Xa UFH, PHA Monitoring <0.10 IU/mL; International Normalized Ratio 1.06; Prothrombin Time Results 11.3 Sec (9.7-11.5)
--- NOTE | 2023-12-24 12:32 | NUR ---
MET WITH FAMILY AND DR. LIMA. PATIENT HAD A DECLINE THIS MORNING AND WAS HAVING MORE DIFFICULTY BREATHING HE WAS TAKEN FOR A HEAD CT AND A CT OF THE CHEST. HE WILL BE TRANSFERED TO ICU AFTER SCANS ARE COMPLETE. DISCUSSED CODE STATUS WITH FAMILY. SORAIDA MARIA, DIANE, AND MERCY PRESENT AND ALL AGREED ON MAKING SONIA DNR/DNI AT THIS TIME. UPDATED PROVIDER AND ORDERS CHANGED. PROVIDER DISCUSSED POTENTIAL BLOOD CLOTS IN THE LUNGS AND TREATMENT OF HEPRIN AND RELAYED THE INCREASED RISK OF BLEEDING. WE DISCUSSED THAT IN THE EVENT SONIA DECLINES THAT HE MAY NEED TO BE TRANSITIONED TO COMFORT CARE. FAMILY SHOWS UNDERSTANDING. PROVIDED THERAPUTIC CONVERSATION AND EMOTIONAL SUPPORT.
--- NOTE | 2023-12-24 12:36 | NUR ---
Pt has continued to have tachycardia, tachypnea, with dyspnea, diaphoresis and decreased LOC. states pt will be moved to ICU after CT scan to check for pulmonary embolism. Pt taken to CT. Report given in person in ICU to Barbara while pt was in imaging dept. Family members present in PCU were informed of the transfer and ongoing pt treatment plan.
--- NOTE | 2023-12-24 12:50 | NUR ---
3% INFUSION: Centeral line discussed with Dr Ross. Will hold off at this time. Peripheral infusion discussed with pharmacy and approved by Dr Ross.
[2023-12-24] MEDS ORDERED: Dose Adjust by Pharmacy XX STA (12:53)
[2023-12-24] MEDS ORDERED: Heparin Sodium,Porcine/0.5 NS 500 ML IV SCH (12:55)
--- NOTE | 2023-12-24 13:34 | NUR ---
HEPARIN HEPARIN GTT STARTED AT 1305, PLACED ON STANDBY AT [address] LIMA. AMY IN PHARMACY NOTIFIED.
[2023-12-24] MEDS ORDERED: Vancomycin HCL 1,750 MG in NS 500 ML IV ONE (13:55)
--- NOTE | 2023-12-24 14:26 | NUR ---
VENOUS DUPLEX RESULTS GIVEN TO DR LIMA. HEPARIN GTT RESTARTED AT 12UNITS/KG/HR.
[2023-12-24] MEDS ORDERED: NS 250 ML IV PRN (15:25)
--- NOTE | 2023-12-24 17:47 | NUR ---
SHIFT SUMMARY PT RECEIVING HEPARIN 12UNITS/KG/HR AND 3% NACL 30ML/HR. PT HAS R SIDED GAZE. PUPILS EQUAL AND SLUGGISH. UNABLE TO MOVE HEAD OR EYES TO L SIDE. MUMBLES NOISES AND OCCASIONAL WORDS BUT UNABLE TO MAKE CONVERSATION OR FOLLOW ANY COMMANDS. PT MOVES R UPPER EXTREMITY AND MINIMALLY MOVES R LEG. L UPPER AND LOWER EXTREMITY FLACCID. HE REMAINS TACHYPNEIC WITH RATE IN 30S AND SHALLOW BREATHS. HE IS ON AIRVO 45L/65% AND TOLERATING WELL. SINUS TACH ON MONITOR WITH RATE IN 100S-110S. MAP >65. DOBHOFF IN PLACE AT 60CM. FONG PATENT AND DRAINING TO GRAVITY. FAMILY UPDATED AT BEDSIDE EARLIER THIS AFTERNOON.
--- NOTE | 2023-12-24 19:30 | NUR ---
ASSUMPTION OF CARE ASSUMED CARE OF PATIENT AT 1900, BEDSIDE SHIFT REPORT RECEIVED FROM CELIA RN. PT RESTING IN BED, ALERT, PT HAS MUMBLED/SLURRED SPEECH AND IS VERY HARD TO UNDERSTAND. PT FOLLOWS DIRECTION WHEN PROMPTED. PT ABLE TO SQUEEZE RIGHT HAND, WIGGLE TOES ON THE RIGHT SIDE AND OPEN EYES WIDE. PT FLACCID ON THE LEFT SIDE. HR 110-120'S SINUS, MAP >65. PT LUNG SOUNDS COARSE, AIRVO IN PLACE 55L 30%, OXYGEN SATURATION >95%. DOBHOFF IN PLACE CLAMPED. ABDOMEN SOFT, BOWEL TONES HYPOACTIVE IN PRESENT IN ALL FOUR QUADRANTS. FONG IN PLACE PATENT DRAINING YELLOW URINE TO GRAVITY. PIV IN PLACE TO RAC AND LEFT HAND. POWERGLIDE IN PLACE TO HAZEL. BLISTERS NOTED TO HAZEL FROM PREVIOUS INFILTRATION, OUTLINED IN MARKER. 3% SODIUM CHLORIDE INFUSING AT 30MLS/HR. PT LEFT LOWER EXTREMITIY COOL, MOTTLED. PULSES PRESENT VIA DOPPLER. BED IN LOWEST POSITION, CARE CONTINUES.
--- NOTE | 2023-12-24 23:13 | NUR ---
PT UPDATE PT PARTIALLY PULLED DOBHOFF. DOBHOFF READVANCED, XRAY OBTAINED. CALL PALCE TO HOSPITALIST TO VERIFY PLACEMENT. CARE CONTINUS.
[2023-12-25] VITALS (32 sets, daily range): BP systolic 102–144; BP diastolic 71–116
[2023-12-25 01:29] LABS: BASOPHILS ABSOLUTE AUTO 0.04 K/mm3 (0.00-0.23); BASOPHILS PERCENT AUTO 0 % (0-2); EOSINOPHILS ABSOLUTE AUTO 0.01 K/mm3 (0.00-0.68); EOSINOPHILS PERCENT AUTO 0 % (0-6); Hematocrit 37.7 % (37.0-53.0); IMMATURE GRAN ABSOLUTE AUTO 0.18 K/mm3 (0.00-0.10); IMMATURE GRAN PERCENT AUTO 1 % (0-1); LYMPHOCYTES ABSOLUTE AUTO 1.65 K/mm3 (0.84-5.20); LYMPHOCYTES PERCENT AUTO 8 % (21-46); MONOCYTES PERCENT AUTO 6 % (4-13); Mean Corpuscular HGB 30.8 pg (26.0-34.0); Mean Corpuscular HGB Conc 34.5 g/dL (31.5-36.5); Mean Corpuscular Volume 89 fL (80-100); NEUTROPHILS ABSOLUTE AUTO 17.21 K/mm3 (1.96-9.15); NEUTROPHILS PERCENT AUTO 85 % (41-73); Platelet Count 183 K/mm3 (150-400); RDW Standard Deviation 45.1 fL (35.1-46.3); Red Blood Cell Count 4.22 M/mm3 (4.30-5.90); White Blood Cell Count 20.29 K/mm3 (4.00-11.30)
[2023-12-25 01:31] LABS: Mean Platelet Volume 13.1 fL (9.1-12.4)
[2023-12-25 01:40] LABS: Albumin, Blood 2.3 g/dL (3.4-5.0); Albumin/Globulin Ratio 0.5 (0.8-1.8); Bilirubin, Total 0.7 mg/dL (0.1-1.0); Bun/Creatinine Ratio 36.2 (12.0-20.0); Calcium, Blood 8.4 mg/dL (8.5-10.1); Creatinine, Blood 1.16 mg/dL (0.60-1.20); Globulin, Blood 4.2 g/dL (2.2-4.0); Potassium, Blood 3.6 mmol/L (3.5-5.5); Total Protein, Blood 6.5 g/dL (6.4-8.2)
[2023-12-25] MEDS ORDERED: Vancomycin HCL 1,000 MG in NS 250 ML IV SCH (03:00)
[2023-12-25] MEDS ORDERED: Dose Adjust by Pharmacy XX STA ×3 (05:10→19:48)
--- NOTE | 2023-12-25 06:04 | NUR ---
SHIFT SUMMARY NO ACUTE CHANGES THIS SHIFT. PT CONTINUES TO REST IN BED, SLEEPING BUT AROUSABLE. PT ABLE TO MOVE EXTREMITIES ON THE RIGHT SIDE, FLLOW COMMANDS WHEN PROMPTED SUCH SQUEEZING HAND AND WIGGLING TOES ON THE RIGHT SIDE, PT FLACCID ON THE LEFT. PT SPEECH IS MUMMBLED/SLURRED AND HARD TO UNDERSTAND. PT HAS A RIGHTWARD GAZE WITH HEAD TURNED TO THE RIGHT, PT UNABLE TO LOOK AND/OR TURN HEAD TO THE LEFT WHEN ASKED. PUPILS EQUAL ROUND AND REACTIVE TO LIGHT. HR 100-120'S SINUS, MAP >65. PT ON AIRVO 55L, 30%, OXYGEN SATURATION >95%. ABDOMEN SOFT, BOWEL TONES ACTIVE IN ALL FOUR QUADRANTS. DOBHOFF IN PLACE CLAMPED. FONG IN PLACE PATENT DRAINING TO GRAVITY. PIV IN PLACE TO RAC AND LEFT HAND. POWERGLIDE IN PLACE TO HAZEL. HEPARIN INFUSING AT 12UNITS/KG/HR BED IN LOWEST POSITION, CARE CONTINUES.
--- NOTE | 2023-12-25 07:00 | NUR ---
ASSUMPTION OF CARE PT RECEIVING HEPARIN 12UNITS/KG/HR. HE IS AWAKE WITH HEAD TURNED TOWARD R SIDE WITH R SIDE GAZE. PT UNABLE TO TURN HEAD OR LOOK TOWARD L SIDE. PUPILS EQUAL, SLUGGISH. PT'S SPEECH IS MUMBLED, OCCASIONALLY ABLE TO FORM 1-2 WORDS. PT ABLE TO FOLLOW SIMPLE COMMANDS WITH R UPPER AND LOWER EXTREMITY. L SIDE REMAINS FLACCID. HE IS ON AIRVO WITH 55L/29%. HE REMAINS TACHYPNEIC WITH RATE IN 30S-40S. SINUS TACH ON MONITOR WITH RATE IN 110S-120S. BP STABLE. DOBHOFF IN PLACE AT 60CM. ABDOMEN MILDLY DISTENDED. FONG PATENT AND DRAINING TO GRAVITY. CEILING LIFT USED TO POSITION PT IN A RECLINER. BROTHER AT BEDSIDE AND UPDATED ON PT CONDITION. CALL LIGHT WITHIN REACH.
--- NOTE | 2023-12-25 12:00 | NUR ---
CT PT TAKEN TO CT. TRANSITIONED TO 6L NC. PT TOLERATED WELL. BACK IN ROOM AND PLACED ON AIRVO WITH PREVIOUS SETTINGS.
[2023-12-25] MEDS ORDERED: FentaNYL Citrate 50 MCG/ML 2 ML Injection IV PRN (14:30)
[2023-12-25] MEDS ORDERED: Insulin Human Lispro 100 Units/ML 3ML Syringe SC SCH (18:00)
--- NOTE | 2023-12-25 18:21 | NUR ---
SHIFT SUMMARY PT RECEIVING HEPARIN 13UNITS/KG/HR. HE REMAINS ON AIRVO 45L/30%. PT CONTINUES TO HAVE HEAD TURNED TOWARD R SIDE. HIS SPEECH IS MUMBLED BUT HE CAN OCCASIONALLY SAY 1-3 WORD PHRASES TO ANSWER QUESTIONS. PT ABLE TO FOLLOW SIMPLE COMMANDS WITH R ARM AND LEG. PT'S LEFT SIDE REMAINS FLACCID. PT RECOGNIZED FAMILY AT BEDSIDE THROUGHOUT THE DAY. PT HAD REPEAT HEAD CT TODAY. ATTEMPTED TO PLACE PT ON OXYMASK FOR COMFORT. PT BEGAN PULLING MASK OFF AND TRANSITIONED BACK TO AIRVO WHICH HE IS TOLERATING WELL. HE HAS A MOIST WEAK COUGH. LUNGS ARE COARSE. HE REMAINS TACHYPNEIC WITH RATE >30. DOBHOFF REMAINS IN PLACE AT 60CM. ABDOMEN DISTENDED AND FIRM. PT DENIES GI UPSET. NO BM SINCE ADMISSION, GIVEN DOCUSATE PER EMAR. FONG PATENT AND DRAINING TO GRAVITY. PT HYPERGLYCEMIC, PROVIDER NOTIFIED AND ORDER RECEIVED FOR HIGH SLIDING SCALE AND LONG ACTING DOSE INCREASED. BED IN LOW POSITION, CALL LIGHT WITHIN REACH.
--- NOTE | 2023-12-25 20:24 | NUR ---
ASSUMPTION OF CARE ASSUMED CARE OF PATIENT AT 1900, BEDSIDE SHIFT REPORT RECEIVED FROM CELIA RN. PT MOVES RIGHT ARM AND LEG SPONTANEOUSLY, ABLE TO FOLLOW DIRECTION ON THE RIGHT SIDE SUCH SQUEEZING HAND AND WIGGLING TOES. PT FLACCID ON THE LEFT SIDE. PT HAS A RIGHT SIDED GAZE, HEAD IS TURNED TO THE RIGHT, PT UNABLE TO TURN HEAD OR LOOK TO THE LEFT WHEN ASKED. PT HAS SLURRED/MUMBLED SPEECH, HARD TO UNDERSTAND. HR 110-120'S, SINUS, MAP >65. PT ON AIRVO 45L 33% OXYGEN SATURAITON >95%. DOBHOFF IN PLACE CLAMPED, ABODMEN SOFT, BOWEL TONES ACTIVE IN ALL FOUR QUADRANTS. FONG IN PLACE PATENT DRAINING TO GRAVITY. PIV IN PLACE TO RAC AND LEFT HAND. POWERGLIDE IN PLACE TO HAZEL. HEPARIN INFUSING AT 14UNITS/KG/HR PER PHARMACY. BED IN LOWEST POSITION, CALL LIGHT WITHIN REACH, CARE CONTINUES.
[2023-12-25] MEDS ORDERED: Insulin Glargine-Yfgn 100 Unit/mL 3 ML SYR SC SCH (21:00)
[2023-12-26] VITALS (16 sets, daily range): BP systolic 114–145; BP diastolic 84–100
[2023-12-26 02:29] LABS: Hematocrit 36.3 % (37.0-53.0); Hemoglobin 12.4 g/dL (13.5-17.5); Mean Corpuscular HGB 30.3 pg (26.0-34.0); Mean Corpuscular HGB Conc 34.2 g/dL (31.5-36.5); Mean Corpuscular Volume 89 fL (80-100); Platelet Count 221 K/mm3 (150-400); RDW Standard Deviation 45.3 fL (35.1-46.3); Red Blood Cell Count 4.09 M/mm3 (4.30-5.90); White Blood Cell Count 16.84 K/mm3 (4.00-11.30)
[2023-12-26 02:39] LABS: Mean Platelet Volume 13.2 fL (9.1-12.4)
[2023-12-26 02:40] LABS: Anion Gap 11 mmol/L (3-11); Blood Urea Nitrogen 39 mg/dL (8-24); Bun/Creatinine Ratio 38.6 (12.0-20.0); CO2, Blood 22 mmol/L (21-32); Calcium, Blood 8.5 mg/dL (8.5-10.1); Chloride, Blood 118 mmol/L (98-108); Creatinine, Blood 1.01 mg/dL (0.60-1.20); Glomerular Filtration Rate 83 (60-); Glucose, Blood 240 mg/dL (70-99); Potassium, Blood 3.5 mmol/L (3.5-5.5); Sodium, Blood 147 mmol/L (136-145); Vancomycin, Trough 13.4 ug/mL (5.0-10.0)
--- NOTE | 2023-12-26 05:24 | NUR ---
SHIFT SUMMARY NO ACUTE CHANGES THIS SHIFT. PT CONTINUES TO REST IN BED, SLEEPING BUT AROUSABLE. PT MOVES RIGHT ARM AND RIGHT LEG SPONTANEOUSLY, ABLE TO FOLLOW DIRECTION ON THE RIGHT SIDE. LEFT ARM AND LEG FLACCID. PT HAS RIGHT SIDED GAZE, HEAD IS TURNED TO THE RIGHT, PT ABLE TO MOVE HEAD TO THE LEFT SLIGHTLY WHEN PROMPTED. PT HAS SLURRED/MUMBLED SPEECH, HARD TO UNDERSTAND, PT ABLE TO ANSWER SIMPLE QUESTIONS. HR 110-120'S SINUS, MAP >65. PT ON AIRVO 45L 32%, OXYGEN SATURATION >95%. DOBHOFF IN PLACE CLAMPED. ABDOMEN SOFT, BOWEL TONES ACTIVE IN ALL FOUR QUADRANTS. FONG IN PLACE PATENT DRAINING TO GRAVITY. PIV IN PLACE TO RAC AND LEFT HAND. POWERGLIDE IN PLACE TO HAZEL. HEPARIN INFUSING AT 14UNITS/KG/HR PER PHARMACY. BED IN LOWEST POSITION, CALL LIGHT WITHIN REACH, CARE CONTINUES.
--- NOTE | 2023-12-26 17:21 | NUR ---
GLUCOSE CBG 431, HOSPITALIST NOTIFIED. ORDER RECEIVED FOR DIETARY CONSULT TO RE-EVALUATE TUBE FEEDING FORMULA AND SCHEDULE.
--- NOTE | 2023-12-26 18:23 | NUR ---
SHIFT SUMMARY PT RECEIVING HEPARIN 13UNITS/KG/HR. HE REMAINS ON AIRVO 50L/40%. RT ATTEMPTED TO TRANSITION PT TO NC. SATS MAINTAINED >94% BUT PT BECAME MORE TACHYPNEIC AND WHEN ASKED IF HE FELT LIKE HE NEEDS MORE AIR HE STATED "YES". PT CONTINUES TO HAVE HEAD TOWARD R SIDE AND R SIDE GAZE. PT'S SPEECH LESS MUMBLED TODAY BUT PT ABLE TO MAEK 1-3 WORD PHRASES. PT CONTINUES TO FOLLOW COMMANDS WITH R SIDE, L SIDE IS FLACCID. HE HAS BEEN TACHYPNEIC THROUGHOUT THE SHIFT WITH RATE IN 30S-40S. SINUS TACH ON MONITOR WITH RATE IN 110S-120S. BP STABLE THROUGHOUT THE DAY. BOLUS TUBE FEEDS AND FLUSHES GIVEN SCHEDULED. ABDOMEN APPEARS DISTENDED AND FIRM. PT DENIES GI UPSET. PT HAS NOT HAD A BM SINCE ADMISSION, MEDICATED PER EMAR. PT'S GLUCOSE HAS BEEN STEADILY INCREASING, HOSPITALIST NOTIFIED. ORDER RECEIVED FOR DIETARY CONSULT TO RE-EVALUATE FEEDING SCHEDULE AND FORMULA. FONG PATENT AND DRAINING TO GRAVITY. FONG PATENT AND DRAINING TO GRAVITY. BED IN LOW POSITION, CALL LIGHT WITHIN REACH.
--- NOTE | 2023-12-26 21:39 | NUR ---
ASSUMPTION OF CARE ASSUMED CARE OF PATIENT AT 1900. BEDSIDE SHIFT REPORT RECEIVED FROM CELIA RN. PT RESTING IN BED, SLEEPING BUT AROUSABLE. PT MOVES RIGHT ARM AND LEG SPONTANEOUSLY, ABLE TO FOLLOW DIRECTION ON TJHE RIGHT SIDE SUCH SQUEEZING HAND AND WIGGLING TOES. PT FLACCID ON THE LEFT SIDE. PT ABLE TO TURN HEAD SLIGHTLY TO THE LEFT WHEN PROMPTED, BUT HEAD RESTS TO THE RIGHT, PT ALSO HAS RIDE SIDED GAZE. PT HAS SLURRED/MUMBLED SPEECH, ABLE TO STATE 1-3 WORD SENTENCES. PT IS HARD TO UNDERSTAND AT TIMES. HR 110-120'S SINUS, MAP >65. PT ON AIRVO 50L 40%, OXYGEN SATURATION >90%. PT TACHYPNEIC WITH RESPIRATORY RATE IN THE 40'S. ABDOMEN ROUND AND FIRM, BOWEL TONES HYPOACTIVE. PT DENEIS ABDOMINAL PAIN. FONG IN PLACE PATENT DRAINING TO GRAVITY. PIV IN PLACE TO RAC AND LEFT HAND. POWERGLIDE IN PLACE TO HAZEL. HEPARIN INFUSING AT 13UNITS/KG/HR. BED IN LOWEST POSITON, CARE CONTINUES.
[2023-12-26] MEDS ORDERED: Insulin Glargine-Yfgn 100 Unit/mL 3 ML SYR SC ONE (22:00)
[2023-12-27] VITALS (11 sets, daily range): BP systolic 118–144; BP diastolic 79–98
[2023-12-27] MEDS ORDERED: Dose Adjust by Pharmacy XX STA ×3 (00:19→14:25)
[2023-12-27 03:40] LABS: Hematocrit 34.4 % (37.0-53.0); Hemoglobin 11.7 g/dL (13.5-17.5); Mean Corpuscular HGB 30.4 pg (26.0-34.0); Mean Corpuscular Volume 89 fL (80-100); Mean Platelet Volume 13.1 fL (9.1-12.4); NRBC ABSOLUTE 0.04 K/mm3 (0.00-0.02); NRBC Auto 0.3 /100 WBC (0.0-0.2); Platelet Count 244 K/mm3 (150-400); RDW Coefficient Variation 14.4 % (11.7-14.2); RDW Standard Deviation 46.6 fL (35.1-46.3); Red Blood Cell Count 3.85 M/mm3 (4.30-5.90); White Blood Cell Count 13.35 K/mm3 (4.00-11.30)
[2023-12-27 03:53] LABS: Bun/Creatinine Ratio 38.7 (12.0-20.0); Calcium, Blood 8.5 mg/dL (8.5-10.1); Creatinine, Blood 0.96 mg/dL (0.60-1.20); Potassium, Blood 3.6 mmol/L (3.5-5.5)
--- NOTE | 2023-12-27 05:42 | NUR ---
SHIFT SUMMARY NO ACUTE CHANGES THIS SHIFT. PT CONTINUES TO REST IN BED, SLEEPING BUT AROUSABLE. PT MOVES RIGHT ARM AND RIGHT LEG SPONTANEOUSLY, ABLE TO FOLLOW DIRECTIONS ON RIGHT SIDE SUCH WIGGLING TOES AND SQUEEZING HAND. PT FLACCID ON LEFT SIDE. PT SPEECH MUMBLED/SLURRED AND HARD TO UNDERSTAND. PT ABLE TO STATE 1-3 WORD SENTENCES. PT HEAD RESTS TO THE RIGHT SIDE, PT HAS RIGHT SIDED GAZE, UNABLE TO LOOK TO THE LEFT WHEN PROMPTED. HR 110-120'S SINUS, MAP >65. PT ON AIRVO 50L 40%, OXYGEN SATURATION >95%. ABDOMEN FIRM AND ROUND, BOWEL TONES ACTIVE IN ALL FOUR QUADRANTS. PT DENIES ABDOMINAL PAIN. NO BM THIS SHIFT. FONG IN PLACE PATENT DRAINING YELLOW URINE TO GRAVITY. PIV IN PLACE TO RAC AND LEFT HAND. POWERGLIDE IN PLACE TO HAZEL. HEPARIN INFUSING AT 14UNITS/KG/HR. BED IN LOWEST POSITION, CARE CONTINUES.
[2023-12-27] MEDS ORDERED: Aspirin 81 MG Chew PT SCH (10:35)
--- NOTE | 2023-12-27 10:39 | NUR ---
AM NOTE... ASSUMED CARE OF PT AT 0700, PT IS A&O TO SELF AND IS ABLE TO FOLLOW DIRECTIONS WITH THE RIGHT SIDE, PT IS UNABLE TO USE HIS LEFT SIDE. SPEECH IS VERY SLURRED BUT SOME WORDS ARE RECOGNIZABLE. HE IS IN SINUS TACH IN THE LOW 100'S BP IS STABLE WITH MAPS> 65. THE PTS LLE IS COOL AND SWOLLEN, PULSES FOUND WITH DOPPLER ONLY. PT IS ON AIRVO AT 50L AND 40% WITH O2 SATS>95% L/S VERY COARSE T/O AND DIM IN THE BASES RR IS IN THE 20'S-30'S. DOBHOFF IS IN PLACE WITH BOLUS FEEDINGS PER ORDERS. FONG IS PATENT AND DRAINING TO GRAVITY. TEMP THIS AM WAS 99.4. WILL CONTINUE TO MONITOR,.
--- NOTE | 2023-12-27 18:33 | NUR ---
SHIFT SUMMARY... PT WAS FEBRILE THIS SHIFT WITH TMAX OF 102.5, HE WAS GIVEN TYLENOL WHICH IMPROVED HIS TEMP TO 100.9. AIRVO SETTINGS WERE DECREASED TO 45L AND 30% WITH O2 SATS>95%, SPUTUM SAMPLE SENT TO THE LAB. PT DID NOT HAVE A BM THIS SHIFT, BOWEL CARE WAS STARTED PER ORDERS. PT'S BOLUS TUBE FEEDS RUNNING PER ORDERS THIS SHIFT WELL. PT WAS UP IN THE RECLINER CHAIR MOST OF THIS SHIFT AND TOLERATED IT WELL. PT'S FAMILY AT THE BEDSIDE OFF AND ON THIS SHIFT. HEPARIN DRIP IS RUNNING PER ORDERS WILL CONTINUE TO MONITOR UNTIL REPORT IS GIVEN TO ONCOMING RN.
--- NOTE | 2023-12-27 20:24 | NUR ---
ASSUMPTION OF CARE ASSUMED CARE OF PATIENT AT APPROXIMATELY 1900, BEDSIDE SHIFT REPORT RECEIVED FROM CELIA RN. PT RESTING IN BED, OPENS EYES TO VERBAL STIMULI. PT ABLE TO ANSWER SIMPLE QUESITONS. PT SPEECH MUMBLED/SLURRED HARD TO UNDERSTAND AT TIMES. PT CAN OCCASIONALLY STATE 1-3 WORD SENTENCES. PT MOVES RIGHT ARM AND RIGHT LEG SPONTANEOUSLY, ABLE TO FOLLOW DIRECTIONS ON THE RIGHT SIDE SUCH WIGGLING TOES AND SQUEEZING HANDS. PT FLACCID ON THE LEFT SIDE. PT HAS RIDEWARD GAZE WITH HEAD TURNED TO THE RIGHT. PT UNABLE TO LOOK TO THE LEFT WHEN PROMPTED. PT LEFT LEG EDEMATOUS, DOPPLER PULSES HEARD, LEFT LEG OCCAISONALLY MOTTLED AROUND THE KNEE, WARM TO THE TOUCH. HR 90-100'S SINUS, MAP >65. PT ON AIRVO 45L, 30%, PT LUNG SOUNDS WET, PT HAS MOIST COUGH, OXYGEN SATURATION > 95%. ABDOMEN FIRM AND DISTENDED, BOWEL TONES ACTIVE IN ALL FOUR QUADRANTS. PT DENIES ABDOMINAL PAIN. FONG IN PLACE PATENT DRAINING TO GRAVITY. PIV IN PLACE TO RAC AND LEFT HAND. POWERGLIDE IN PLACE TO HAZEL. HEPARIN INFUSING AT 16UNITS/KG/HR. BED IN LOWEST POSITION, CALL LIGHT WITHIN REACH, CARE CONTINUES.
[2023-12-27] MEDS ORDERED: Insulin Glargine-Yfgn 100 Unit/mL 3 ML SYR SC SCH (21:00)
[2023-12-28] VITALS: BP 140/87
[2023-12-28] MEDS ORDERED: Dose Adjust by Pharmacy XX STA ×2 (00:06→07:42)
[2023-12-28 03:51] LABS: BASOPHILS ABSOLUTE AUTO 0.02 K/mm3 (0.00-0.23); BASOPHILS PERCENT AUTO 0 % (0-2); EOSINOPHILS ABSOLUTE AUTO 0.13 K/mm3 (0.00-0.68); EOSINOPHILS PERCENT AUTO 1 % (0-6); Hematocrit 31.1 % (37.0-53.0); Hemoglobin 10.5 g/dL (13.5-17.5); IMMATURE GRAN ABSOLUTE AUTO 0.19 K/mm3 (0.00-0.10); IMMATURE GRAN PERCENT AUTO 2 % (0-1); LYMPHOCYTES ABSOLUTE AUTO 1.15 K/mm3 (0.84-5.20); LYMPHOCYTES PERCENT AUTO 9 % (21-46); MONOCYTES ABSOLUTE AUTO 0.89 K/mm3 (0.16-1.47); MONOCYTES PERCENT AUTO 7 % (4-13); Mean Corpuscular HGB 30.3 pg (26.0-34.0); Mean Corpuscular HGB Conc 33.8 g/dL (31.5-36.5); Mean Corpuscular Volume 90 fL (80-100); Mean Platelet Volume 12.6 fL (9.1-12.4); NEUTROPHILS ABSOLUTE AUTO 9.92 K/mm3 (1.96-9.15); NEUTROPHILS PERCENT AUTO 81 % (41-73); NRBC ABSOLUTE 0.08 K/mm3 (0.00-0.02); NRBC Auto 0.7 /100 WBC (0.0-0.2); Platelet Count 251 K/mm3 (150-400); RDW Coefficient Variation 14.7 % (11.7-14.2); RDW Standard Deviation 47.4 fL (35.1-46.3); Red Blood Cell Count 3.46 M/mm3 (4.30-5.90)
[2023-12-28 04:54] VITALS: BP 127/85
--- NOTE | 2023-12-28 05:08 | NUR ---
ARRIVAL TO PCU AT APPROX 0440, PATIENT TRANSFERRED TO PCU. BEDSIDE SHIFT REPORT RECEIVED FROM DIRECTOR OF HOME ECONOMICS KWABENA. PATIENT IS ALERT, OPENS EYES TO VERBAL STIMULI. IS ABLE TO ANSWER SIMPLE QUESTIONS AND FOLLOW SIMPLE COMMANDS. MUMBLED SPEECH NOTED. MOVES R SIDE SPONTANEOUSLY. FLACCID ON L SIDE. FIXED GAZE TO THE RIGHT, UNABLE TO LOOK TO LEFT. TELEMETRY SHOWING SINUS TACH 110s. BP STABLE. HEPARIN GTT INFUSING PER EMAR. ON AIRVO 45L 31%. LUNG SOUNDS COARSE T/O. TACHYPNEA AT REST, RR 25-30. SATs >90%. LIFT PATIENT. FONG IN PLACE, DRAINING YELLOW URINE TO GRAVITY. DOBHOFF IN PLACE. CALL LIGHT IN REACH. WILL CONTINUE TO MONITOR AND REPORT TO ONCOMING RN.
--- NOTE | 2023-12-28 05:13 | NUR ---
TRANSFER PT TRANSFERED FROM ICU 7 TO PCU 1. ALL PT PERSONAL BELONGINGS TRANSFERED WITH PT. BEDSIDE REPORT GIVEN TO VERENA MARTINS VSPerry ON TRANSFER.
[2023-12-28 05:50] LABS: Bun/Creatinine Ratio 37.1 (12.0-20.0); Calcium, Blood 8.2 mg/dL (8.5-10.1); Creatinine, Blood 0.81 mg/dL (0.60-1.20); Potassium, Blood 3.7 mmol/L (3.5-5.5)
[2023-12-28 08:25] VITALS: BP 124/90
[2023-12-28] MEDS ORDERED: Morphine Sulfate 20 MG/1ML 1 ML Oral Syringe SL PRN (11:50)
[2023-12-28] MEDS ORDERED: LORazepam 1 MG Tab PO PRN (11:50)
[2023-12-28] MEDS ORDERED: Acetaminophen 650 MG Supp PR PRN (11:50)
--- NOTE | 2023-12-28 12:06 | NUR ---
Met with pt's brother and sister in person, and spoke with pt's S/O Rehana by phone. They have agreed to place patient on comfort care, and request he be placed at either the [facility] or [facility]. Dr. Gallegos is aware, and placing comfort care orders. Will notify CM.
--- NOTE | 2023-12-28 18:37 | NUR ---
SHIFT SUMMARY PT LETHARGIC, RESPONDS TO R SIDE COMMANDS. DID NOT RESPOND VERBALLY. L SIDE GAZE. PALLIATIVE CARE IN ROOM THIS AM, PT'S SISTER, PARTNER, AND BROTHER IN ROOM, COLLECTIVE DECISION TO GO COMFORT CARE. MD LEMUS W/ COMFORT CARE ORDERS. TELE REMOVED. DOBHOFF REMOVED. REPOSITIONED Q2H. FONG CATHETER DRAINING YELLOW URINE TO GRAVITY. HEP GTT TURNED OFF. ORAL CARE TID. FAMILY AT BEDSIDE.
[2023-12-28 19:54] VITALS: BP 126/73
--- NOTE | 2023-12-28 21:12 | NUR ---
PT RESPONDS TO VERBAL STIMULI. ABLE TO SHAKE HIS HEAD TO YES OR NO QUESTIONS, BUT DOESN'T TO ALL. R GAZE. L SIDE FLACCID. PT ON 4L NC AND MAINTAINING 02 SATURATION ABOVE 90%. NO TELE, PT IS COMFORT CARE. ALL VITALS STABLE AT THIS TIME. ABD DISTENDED W/HYPOACTIVE BOWEL TONES. FONG CATHETER PATENT AND DRAINING ORANGE URINE WITH GRAVITY. BILATERAL EXTREMITY EDEMA NOTED, MORE EDEMA NOTED TO L EXTREMITIES THAN R. POWERGLIDE TO LUE PATENT AND DRAWS. Q 2 TURNS. PT RESTING IN BED LISTENING TO MUSIC. CALL LIGHT WITHIN REACH.
[2023-12-28 23:11] VITALS: BP 131/75
--- NOTE | 2023-12-28 23:51 | NUR ---
TRANSFER: PATIENT WAS RECIEVED FROM PCU 1. PATIENT IS MINIMALLY RESPONSIVE, RECHES FOR WRITERS HAND DURING REPOSITIONING BUT IS NON VERBAL. RR IS 20 PATIENT IS ORIENTED TO THE ROOM AND CALL BRASHER IS WITHIN REACH. MOUTH CARE AND T&P WAS GIVEN, FONG IS PATENY FOR AN GAEL URINE.
--- NOTE | 2023-12-29 04:15 | NUR ---
PT ARRIVED TO THE MEDICAL FLOOR FROM PCU AT APPROXIMATELY 2350. PT IS MINIMALLY RESPONSIVE. PT SHOWS NO S/S FOR PAIN, NAUSEA, OR VOMITING. REPOSITIONED Q2H. FONG PATENT AND DRAINING MINIMAL URINE. NO ACUTE CHANGES SINCE TRANSFER. WILL CONTINUE TO MONITOR AND REPORT TO DAY NURSE.
--- NOTE | 2023-12-29 20:55 | NUR ---
RESPIRATORY: RR IS 35 10 MG ROXANOL GIVEN.
--- NOTE | 2023-12-30 05:01 | NUR ---
SHIFT SUMMARY: RESPIRATIONS WERE 35 AND SHALLOW AT 2049, 10 MG OF ROXANOL WAS GIVEN FOR AIRHUNGER, WITH FAIR EFFECT. RESPIRATIONS SLOWED TO 28 BUT STILL SHALLOW. AT 112 RESPIRATIONS ARE 33, ROXANOL 10 MG WAS GIVEN WITH POOR EFFECT. AT 015 1 MG OF ATIVAN WAS GIVEN WITH GOOD EFFECT. RESPIRATIONS DECREASED TO 26 AND PATIENT IS RESTING WITH NO S/S OF PAIN OR DISCOMFORT. AT 416 RESPIRATIONS ARE STILL SHALLOW WITH A RATE OF 36. 20 MG OF ROXANOL WAS GIVEN WITH GOOD EFFECT, RESPIRATIONS ARE SHALLOW AT 22 WITH OCCASSIONAL 5 SECOND PAUSES OBSERVED. RESPIRATIONS ARE WET. ORAL SUCTIONING IS INEFFECTIVE SECRETIONS ARE LOWER. PATIENT IS RESTING WITH EYE'S CLOSED.
--- NOTE | 2023-12-30 06:51 | NUR ---
MEDICATION EFFECT: RESPIRATION ARE 12 WITH 20 SEC. PAUSES OBSERVED.
[2023-12-30 11:45] LABS: SARS-Cov-2 (COVID-19) PCR, MMC NEGATIVE (NEGATIVE)
--- NOTE | 2023-12-30 11:48 | NUR ---
DISCHARGE NOTE MR BETANCOURT WAS TRANSFERED TO [facility] [place] AT 1144HRS. REPORT CALLED TO KHURRAM NURSE SKIN DIVING TEACHER. PT TRANSPORTED VIA [facility]. FAMILY PRESENT AT TIMES OF TRANSPORT. MR BETANCOURT HAS BEEN MEDICATED TWICE THIS AM WITH ROXINOL 10MG SUBLINGUINAL FOR AIR HUNGER WITH SLIGHT INMPROVEMENT AND OXYGEN 3L NC FOR COMFORT. HIS LEFT ARM/LEG IS FLACID, LARGE BLISTER PREVIOUSLY MARKED ON LEFT ARM. POWER GLIDE LEFT INPLACE FOR TRANSFER AND 2 PIVS REMOVED INTACT THIS AM. FONG CATHETER IN PLACE AND DRAINING TO GRAVITY DRAINAGE BAG. SCOPOLOMINE PATCH IDENTIFIED BEHIND LEFT EAR AND NICOTENE PATCH PRESENT. MOUTH DRY, ORAL CARE DONE AND ORAL SUCTIONING WITH SOME SECRETIONS. PALIATIVE CARE IRAM MELGAR WAS PRESENT WITH PT AND FAMILY PRIOR TO TRANSPORT.
== END 2023-12-30 11:44 | disposition hospice, home (50) | DRG 64 ==
LOC: ER 08:34 → MEDS 13:52 → ICUE 13:52 → PCU 13:52 → ICUE 12-24 12:26 → PCU 12-28 04:41 → MEDS 12-28 23:31 → ENPENDDIS 12-30 11:26 → MEDS 12-30 11:44
PROVIDERS: Emergency Medicine; Family Medicine; Internal Medicine; Student in an Organized Health Care Education/Training Program; ADMIT Internal Medicine
PROC: 3E03329 Introduction of Other Anti-infective into Peripheral Vein, Percutaneous Approach (ICD-10-PCS; 2023-12-18)
PROC: 0DH67UZ Insertion of Feeding Device into Stomach, Via Natural or Artificial Opening (ICD-10-PCS; principal; 2023-12-20)
PROC: 4A033R1 Measurement of Arterial Saturation, Peripheral, Percutaneous Approach (ICD-10-PCS; 2023-12-22)
PROC: 5A0935A Assistance with Respiratory Ventilation, Less than 24 Consecutive Hours, High Flow/Velocity Cannula (ICD-10-PCS; 2023-12-24)
DX: I63.9 Cerebral infarction, unspecified (principal); A41.9 Sepsis, unspecified organism; J69.0 Pneumonitis due to inhalation of food and vomit; J96.01 Acute respiratory failure with hypoxia; Z66 Do not resuscitate; Z51.5 Encounter for palliative care; G93.5 Compression of brain; I26.93 Single subsegmental thrombotic pulmonary embolism without acute cor pulmonale; G81.94 Hemiplegia, unspecified affecting left nondominant side; I82.402 Acute embolism and thrombosis of unspecified deep veins of left lower extremity; E87.3 Alkalosis; J44.9 Chronic obstructive pulmonary disease, unspecified; I10 Essential (primary) hypertension; F17.210 Nicotine dependence, cigarettes, uncomplicated; E11.9 Type 2 diabetes mellitus without complications; R47.81 Slurred speech; R29.810 Facial weakness; F41.0 Panic disorder [episodic paroxysmal anxiety]; F10.20 Alcohol dependence, uncomplicated; Z88.5 Allergy status to narcotic agent; Z79.899 Other long term (current) drug therapy
CPT/HCPCS: 31720; 36415; 36600; 70450; 70496; 70498; 70551; 71045; 71260; 80048; 80053; 80061; 80202; 81001; 82803; 82947; 83605; 83735; 83880; 84100; 84145; 84295; 84484; 85025; 85027; 85520; 85610; 85730; 87040; 87070; 87086; 87106; 87205; 92526; 92610; 93005; 93010; 93306; 93971; 94640; 94664; 94760; 94762; 97110; 97112; 97162; 97166; 97530; 99285-25; A9270; C1751; J0456; J0696; J1120; J1644; J1815; J1940; J2060; J2543; J3010; J3370; J7040; J7050; J7070; J7120; Q9967; U0002